=== PATIENT | female | born 1980 | race Caucasian/White ===

== ENCOUNTER 2019-12-09 21:22 | Emergency (ER) | payer SELFPAY ==
--- NOTE | 2019-12-09 21:24 | ED.GENADUL_ITS ---
Discharge Plan Disposition Patient Disposition: HOME Condition: Fair Discharge Details Chief Complaint: Urinary Clinical Impression: Urinary retention [facility] Care Provider: [facility] Provider: Zofia Anderson Home Meds and New Rx's Prescriptions: No Action clonazepam [Klonopin] 1 mg Tablet 1 mg PO BID RF: 0 citalopram [Celexa] 20 mg Tablet 20 mg PO DAILY RF: 0 Discharge Instructions Instructions: Acute Urinary Retention in Women (ED) Additional Instructions: Encourage water intake. Encourage complete emptying of the bladder when he use the bathroom. Try to do this as many times as possible throughout the day. You need follow-up with urology and further testing including ultrasound. Please call your primary care tomorrow to schedule these tests. If you develop increased pain, fever/chills, inability to urinate or other new/worsening symptoms please seek care immediately. Medical Decision Making Patient is a 39-year-old female presenting today with concern for UTI. She reports that symptoms began over the past few days and progressively been increasing. States that she is been using Azo and cranberry to the discomfort. Endorses burning with urination, increased frequency urgency. Is also endorsing severe abdominal pain but reports that this is associated with her chronic endometriosis and denies any acute change with this. No change in her abdominal pain. No nausea or vomiting. No change in bowel habits. Denies any vaginal discharge. Has not had any fevers or chills. On exam, patient is resting comfortably. She appears nontoxic. No peritoneal findings or tenderness elicited exam of her abdomen. Patient also has some discomfort with percussion over the CVA bilaterally. UA shows small amount of blood. Patient states that she is [place]. Which may contribute but is unclear. Do not have any for comparison. Negative leukocyte esterase, negative nitrite. This is not reflexed to culture. It is moderately contaminated The patient reports to nursing staff that she receives Vicodin from her mother for endometrial pain. Is questioning if I will give her her own prescription. Discussed this further with the patient. I did review the PDMP. Patient reports that she lives in [place] but is here with her who is a truck leasing manager. I am unable to see the state of [place] on PDMP but do see that she did receive immediate release morphine prescribed last year in the state of [place]. I discussed with the patient that the role of the emergency department is not to prescribe narcotics for long-term or chronic pain. I referred patient back to her primary care to discuss this further. Labs were reviewed. No leukocytosis. BUN is mildly elevated at 22. Creatinine is 0.8, GFR over 60. No acute abnormalities are noted. I discussed these findings with the patient. Nursing staff was able to perform a postvoid residual was noted to be 453. Patient then urinated once again and post void 280. Discussed these findings with the patient. We discussed plus/minus catheter placement. At this point, she would like to hold off. Patient is now reporting that she is on Celexa and Klonopin. We discussed that her urinary retention may be associated with her medications, she is also taking Vicodin. 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 She reports is not unusual for her to urinate in a cup which would make it difficult for her to have complete voiding and emptying of the bladder. Advised that she come back tomorrow for an ultrasound possible discussion with urology. Patient is not going to be home until next Monday and I am worried that this urinary retention is was causing her urinary symptoms and discomfort. Patient's plan is to then leave home immediately to go back out on the road again. Discussed with her that she needs further evaluation as well as urologic consultation and to discuss medication changes. I advised that she may have this completed here, could return tomorrow for ultrasound as well as possible urologic consultation if needed. It is unclear if the patient will follow through with this given the time constraints of her 's position at this time. If she is unable to come to hospital tomorrow for further evaluation, she follow-up as soon as possible with primary care and discuss referral for urologic consultation. She was given strict return precautions. All of her questions and concerns were addressed. Dietary and lifestyle modification changes were discussed. HPI General Mode of arrival: ambulatory . Date/Time Provider Initiated Documentation: 12/09/19 21:24 . Limitations to Documentation: no limitations . Information obtained by: patient and RN notes reviewed . History of Present Illness 39 year old F presents to the emergency department with the chief complaint of concern for UTI with dysurea, increased frequency and urgency, described as moderate and similar to prior episodes, with intensity rated at 7. Quality is described as burning, Patient started experiencing this day(s) and it has been constant. No relieving factors improve symptom(s), No exacerbating factors reported . Patient notes denies chest pain, diaphoresis, fever/chills, loss of appetite and nausea/vomiting. Patient did receive the following treatments prior to arrival, none Related Data Home Medications Medication Instructions Recorded Confirmed citalopram [Celexa] 20 mg PO DAILY 12/09/19 12/09/19 clonazepam [Klonopin] 1 mg PO BID 12/09/19 12/09/19 Allergies Allergy/AdvReac Type Severity Reaction Status Date / Time ketorolac [From Toradol] Allergy Itching Unverified 12/09/19 21:29 tramadol Allergy Itching Unverified 12/09/19 21:29 Review of Systems Constitutional Constitutional: Reports as per HPI, Denies chills, Denies fever(s) and Denies poor appetite Cardiovascular Cardiovascular: Denies chest pain Respiratory Respiratory: Denies cough Gastrointestinal Gastrointestinal: Reports abdominal pain (reports chronic and unchanged, associated with endometriosis), Denies change in bowel habits, Denies nausea and Denies vomiting Genitourinary Genitourinary: Reports as per HPI Musculoskeletal Musculoskeletal: Reports as per HPI and Denies back pain Integumentary/Breasts Skin/Breast: Reports as per HPI and Denies rash [facility] Social History Smoking/Tobacco Use Status: Current every day Alcohol Intake: current Alcohol Intake frequency: a few times a week Drug use: Occasionally Substance use type: marijuana Do you feel safe at home: Yes Do you feel safe in your relationship?: Yes Exam Const General: cooperative, healthy appearing, comfortable, no acute distress, well developed and well groomed Nutritional Appearance: well nourished and overweight Orientation: alert and awake Resp Effort & Inspection: normal respiratory effort and no respiratory distress Auscultation: clear to auscultation bilaterally, no rales, no rhonchi and no wheezes Cardio Rate: regular rate Rhythm: regular rhythm Heart Sounds: S1 normal and S2 normal GI Inspection: normal to inspection Palpation: soft, no hepatosplenomegaly, not firm, no guarding, not rigid and nontender Back/Spine/Pelvis Back: CVA tenderness (bilateral) Skin General skin exam: no rashes or lesions noted Trauma: no lacerations or abrasions Neuro General: alert and awake Cognition: normal cognition Speech: speech normal Gait: normal gait Psych Appearance: grossly normal and well kempt Mental Status: mental status grossly normal Speech and Movement: speech and movement normal
[2019-12-09 21:25] VITALS: BP 127/65; PULSE 93; RESP 18; TEMP 36.1; O2SAT 97
[2019-12-09 21:38] LABS: Bilirubin Negative (Negative); Blood Small (Negative); Clarity Clear (Clear); Glucose Negative (Negative); Ketones Negative (Negative); Leukocyte Esterase Negative (Negative); Nitrite Negative (Negative); Urobilinogen 0.2 EU/dL (Up TO 0.2)
[2019-12-09 21:45] LABS: Bacteria Negative HPF (Negative); C & S Indicated? No; Casts Negative LPF (Negative); Crystals Negative HPF (Negative); Epithelial Cells Moderate HPF (Negative); Mucus Negative (Negative); Other Cells Negative (Negative); WBC Negative HPF (0-5)
[2019-12-09 22:12] LABS: Abs Immature Grans 0.02 k/cumm (0.0-0.09); Absolute Basophil Count 0.02 k/cumm (0.0-0.2); Absolute Eosinophil Count 0.14 k/cumm (0.0-0.7); Absolute Lymphocyte Count 2.68 k/cumm (1.2-3.4); Absolute Monocyte Count 0.57 k/cumm (0.11-0.7); Absolute Neutrophil Count 5.53 k/cumm (1.2-6.7); Basophils % 0.2; Eosinophils % 1.6; HCT 41.7 % (36.0-46.0); HGB 13.8 g/dL (12.0-15.5); Immature Grans % 0.2 %; Lymphocytes % 29.9; Mean Corp. HGB Concentration 33.1 g/dL (32.0-36.0); Mean Corpuscular Hemoglobin 26.9 pg (27.0-33.0); Mean Corpuscular Volume 81.3 fL (80-95); Mean Platelet Volume 9.5 fL (8.0-11.0); Monocytes % 6.4; Neutrophils % 61.7; Platelet Count 307 x1000/uL (130-400); RBC 5.13 m/cumm (4.00-5.20); RBC Distribution Width 15.6 % (11.7-14.6); White Blood Cell Count 8.96 k/cumm (4.4-10.8)
[2019-12-09 22:29] LABS: ALT 31 U/L (14-59); AST 19 U/L (15-37); Albumin 3.4 g/dL (3.4-5.0); Alkaline Phosphatase 84 U/L (46-116); Anion Gap 11.3 mmol/L (3-11); BUN 22 mg/dL (7-18); Bilirubin, Total 0.1 mg/dL (0.2-1.0); CO2 25.7 mmol/L (21.0-32.0); Calcium 9.6 mg/dL (8.5-10.1); Chloride 101 mmol/L (98-107); Glucose 118 mg/dL (74-106); Sodium 138 mmol/L (136-145); Total Protein 8.3 g/dL (6.4-8.2)
[2019-12-09 23:28] VITALS: BP 126/73; PULSE 90; RESP 18; TEMP 36.1; O2SAT 97
== END 2019-12-09 23:33 | disposition home or self-care (01) ==
PROVIDERS: Emergency Provider Physician Assistant
DX: R33.9 Retention of urine, unspecified (principal); Z87.42 Personal history of other diseases of the female genital tract
CPT/HCPCS: 36415; 80053; 99282; 81003; 81015; 85025